=== PATIENT | male | born 1955 | race Two or more races ===

== ENCOUNTER 2017-03-09 12:02 | Inpatient (IN) | payer OTHER ==
[2017-03-09 14:22] VITALS: BMI 29.9
--- NOTE | 2017-03-09 15:30 | HP ---
CIWA Score - CIWA Score Nausea/Vomitin Muscle Tremors: None Anxiety: 4-Mod. Anxious/Guarded Agitation: 2 Paroxysmal Sweats: 3 Orientation: 0-Oriented Tacttile Disturbances: 0-None Auditory Disturbances: 3-Moderate Harsh/Frighten Visual Disturbances: 3-Moderate Sensitivity Headache: 0-None Present CIWA-Ar Total Score: 20 Admission ROS BHS - HPI Chief Complaint: "I am tired of this monotony and I'm I'm frustrated." Pt. is here to Detox from Alcohol. Allergies/Adverse Reactions: Allergies Allergy/AdvReac Type Severity Reaction Status Date / Time No Known Allergies Allergy Verified 03/09/17 13:59 History of Present Illness: Pt. is here to Detox from alcohol. This is pt.'s first detox admission to [facility]. Pt. had previous Detox admission at [facility], [place], [place] ( 1998). Period of sobriety: 1998 - 2013. Exam Limitations: No Limitations - Ebola screening Have you traveled outside of the country in the last 21 days: No Have you had contact with anyone from an Ebola affected area: No Have you been sick,other than usual withdrawal symptoms: No Do you have a fever: No - Review of Systems Constitutional: Chills, Diaphoresis, Fever, Malaise, Night Sweats, Changes in sleep, Unintentional Wgt. Loss (Lost approx. 35 lbs. over last 2 months.) EENT: reports: No Symptoms Reported Respiratory: reports: SOB at Rest (Occasional.) Cardiac: reports: Chest Pain (Occasional. PATIENT DENIES CURRENT CHEST PAIN.), Syncope (Last episode: approx. 1 month ago. Pt. was not evaluated at hospital.) GI: reports: Nausea, Vomiting, Indigestion (Acid Reflux.), Abdominal cramping : reports: No Symptoms Reported Musculoskeletal: reports: Back Pain Integumentary: reports: No Symptoms Reported Neuro: reports: Headache (Occasional.), Seizure (Pt. thinks that he had one in 2009. 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 5 years ago: NEGATIVE.) Hx Hepatitis C: No (Never Tested.) Hx Depression: Yes (On med.) Hx Suicide Attempt: Yes (jumped off the roof in 2000; PATIENT DENIES CURRENT SI / HI.) Hx Bipolar Disorder: Yes (No med.) Hx Schizophrenia: Yes (Prescribed meds. in past, never took.) Other Medical History: DENIES. - Patient Surgical History Past Surgical History: No Hx Neurologic Surgery: No Hx Cataract Extraction: No Hx Cardiac Surgery: No Hx Lung Surgery: No Hx Breast Surgery: No Hx Breast Biopsy: No Hx Abdominal Surgery: No Hx Appendectomy: No Hx Cholecystectomy: No Hx Genitourinary Surgery: No Hx Section: No Hx Orthopedic Surgery: No Anesthesia Reaction: No - PPD History Previous Implant?: Yes Documented Results: Negative w/o proof Implanted On Prior [facility] Admission?: No PPD to be Administered?: Yes - Reproductive History Patient is a Female of Child Bearing Age (11 -55 yrs old): No (PATIENT IS MALE.) - Smoking Cessation Smoking history: Current every day smoker Have you smoked in the past 12 months: Yes Aproximately how many cigarettes per day: 4 Cigars Per Day: 1 (Occasional.) Hx Chewing Tobacco Use: No Initiated information on smoking cessation: Yes 'Breaking Loose' booklet given: 03/09/17 (GIVEN ON UNIT.) - Substance & Tx. History Hx Alcohol Use: Yes Hx Substance Use: Yes Substance Use Type: Alcohol, Cocaine, Marijuana Hx Substance Use Treatment: Yes ([address] [facility], [place], [place] (1999).) - Substances Abused Cocaine Route: Smoking Frequency: Daily Amount used: $100-150 Age of first use: 36 Date of Last Use: 03/07/17 Alcohol-gin/beer Route: Oral Frequency: Daily Amount used: fifth/2 (24 oz.) Age of first use: 28 Date of Last Use: 03/07/17 Marijuana Route: Smoking Frequency: Daily Amount used: $50 Age of first use: 32 Date of Last Use: 03/08/17 Family Disease History - Family Disease History Family Disease History: Diabetes: Mother (HTN), Heart Disease: Grandparent (AR; HTN.), Mother Admission Physical Exam [facility] - Vital Signs Vital Signs: Vital Signs - 24 hr 03/09/17 14:01 Temperature 96 F L Pulse Rate 77 Respiratory 20 Rate Blood Pressure 166/103 - Physical General Appearance: Yes: Nourished, Appropriately Dressed, Mild Distress, Anxious HEENTM: Yes: Hearing grossly Normal, Normocephalic, Normal Voice, ROC, Pharynx Normal Respiratory: Yes: Chest Non-Tender, Lungs Clear, No Respiratory Distress, No Accessory Muscle Use Neck: Yes: No masses,lesions,Nodules, Supple, Trachea in good position Breast: Yes: Breast Exam Deferred Cardiology: Yes: Regular Rhythm, Regular Rate, S1, S2 Abdominal: Yes: Normal Bowel Sounds, Non Tender, Flat, Soft Genitourinary: Yes: Within Normal Limits Back: Yes: Decreased Range of Motion Musculoskeletal: Yes: Gait Steady, Back pain Extremities: Yes: Normal Range of Motion, Non-Tender Neurological: Yes: Fully Oriented, Alert, Normal Mood/Affect, Normal Response Integumentary: Yes: Normal Color, Dry, Warm Lymphatic: Yes: Within Normal Limits - Diagnostic (1) Alcohol dependence with uncomplicated withdrawal Current Visit: Yes Status: Acute (2) Cocaine dependence, uncomplicated Current Visit: Yes Status: Acute (3) Cannabis dependence, uncomplicated Current Visit: Yes Status: Acute (4) Nicotine dependence Current Visit: Yes Status: Chronic Qualifiers: Nicotine product type: cigarettes Substance use status: uncomplicated Qualified Code(s): F17.210 - Nicotine dependence, cigarettes, uncomplicated (5) Hypertension Current Visit: Yes Status: Chronic Qualifiers: Hypertension type: essential hypertension Qualified Code(s): I10 - Essential (primary) hypertension (6) History of heart failure Current Visit: Yes Status: Chronic (7) Neoplasm of heart Current Visit: Yes Status: Chronic (8) Hypercholesterolemia Current Visit: Yes Status: Chronic (9) History of depression Current Visit: Yes Status: Chronic (10) History of bipolar disorder Current Visit: Yes Status: Chronic (11) History of schizophrenia Current Visit: Yes Status: Chronic (12) Acid reflux Current Visit: Yes Status: Chronic Qualifiers: Esophagitis presence: esophagitis presence not specified Qualified Code(s): K21.9 - Gastro-esophageal reflux disease without esophagitis Cleared for Admission S - Detox or Rehab [facility] Level of Care: Medically Managed Detox Regimen/Protocol: Librium Urine Drug Screen - Results Drug Screen Negative: No Urine Drug Screen Results: THC-Marijuana, PERLITA-Cocaine
[2017-03-09] MEDS ORDERED: MAGNESIUM CITRATE 300 ML BOTTLE PO PRN (16:20)
[2017-03-09] MEDS ORDERED: ACETAMINOPHEN 325 MG TABLET (FP) PO PRN (16:20)
[2017-03-09] MEDS ORDERED: NICOTINE POLACRILEX 2 MG GUM BC PRN (16:20)
[2017-03-09] MEDS ORDERED: LOPERAMIDE HCL 2 MG CAPSULE PO PRN (16:20)
[2017-03-09] MEDS ORDERED: MAGNESIUM HYDROX 2400MG/30ML ORAL SUSPENSION 30 ML CUP PO PRN (16:20)
[2017-03-09] MEDS ORDERED: chlordiazePOXIDE HCL 25 MG CAPSULE PO PRN (16:20)
[2017-03-09] MEDS ORDERED: IBUPROFEN 400 MG TABLET (FP) PO PRN (16:20)
[2017-03-09] MEDS ORDERED: MAG HYDROX/AL HYDROX/SIMETH 30 ML UNIT-DOSE CUP PO PRN (16:20)
[2017-03-09] MEDS ORDERED: hydrOXYzine PAMOATE 50 MG CAPSULE (FP) PO PRN (16:20)
[2017-03-09] MEDS ORDERED: guaiFENesin/D-METHORPHAN HB 10 ML UNIT-DOSE CUPS PO PRN (16:20)
[2017-03-09] MEDS ORDERED: MENTHOL/PHENOL 1 EACH UD MM PRN (16:20)
[2017-03-09] MEDS ORDERED: P-EPHED 60MG/TRIPROLIDI 2.5MG TABLET PO PRN (16:20)
[2017-03-09] MEDS ORDERED: chlordiazePOXIDE HCL 25 MG CAPSULE PO ONE (16:45)
[2017-03-09] MEDS ORDERED: LISINOPRIL 20 MG TABLET (FP) PO SCH (17:00)
[2017-03-09] MEDS: NICOTINE 14 MG/24 HOURS TOPICAL PATCH TD SCH (18:33)
[2017-03-09] MEDS: hydrALAZINE HCL 50 MG TABLET (FP) PO SCH ×2 (18:33→22:37)
[2017-03-09] MEDS: ASPIRIN 81 MG CHEWABLE TABLETS PO SCH (18:33)
[2017-03-09] MEDS: chlordiazePOXIDE HCL 25 MG CAPSULE PO SCH ×2 (18:34→22:36)
[2017-03-09 21:20] LABS: URINE APPEARANCE CLEAR; URINE BILIRUBIN NEGATIVE (NEGATIVE); URINE BLOOD NEGATIVE (NEGATIVE); URINE COLOR YELLOW; URINE GLUCOSE (UA) NEGATIVE (NEGATIVE); URINE KETONE NEGATIVE (NEGATIVE); URINE LEUK ESTERASE NEGATIVE (NEGATIVE); URINE NITRITE NEGATIVE (NEGATIVE); URINE PROTEIN NEGATIVE (NEGATIVE); URINE UROBILINOGEN NEGATIVE mg/dL (0.2-1.0)
[2017-03-09] MEDS ORDERED: PRAZOSIN HCL 1 MG CAPSULE PO SCH (22:00)
[2017-03-09] MEDS: THIAMINE HCL 100 MG TABLET (FP) PO SCH (22:36)
[2017-03-09] MEDS: ATORVASTATIN CA 10 MG TABLET (FP) PO SCH (22:36)
[2017-03-10] MEDS: hydrALAZINE HCL 50 MG TABLET (FP) PO SCH ×3 (06:05→22:18)
[2017-03-10] MEDS: chlordiazePOXIDE HCL 25 MG CAPSULE PO SCH ×4 (06:05→22:18)
[2017-03-10] MEDS: VERAPAMIL HCL 180 MG E.R. TABLET (FP) PO SCH (06:05)
--- NOTE | 2017-03-10 09:15 | CONSULT ---
[facility] Psychiatric Consult - Data Date of interview: 03/10/17 Admission source: [facility] Identifying data: Mr Saxena is a 61 years old single Black male, Retired from the [employer], domiciled Substance Abuse History: Reports history of alcohol and cocaine abuse. He started drinking alcohol at age 28, consumes a fifth of gin & 2x 24oz of beer daily. Last drink on 03/07/17. He started smoking crack cocaine at age 36, consumes $100-150 worth daily. Last smoked on 03/07/17 Medical History: Significant for CAD/OR with 7 stents, hypertensin, hyperlipidemia, GERD, alcohol-related seizure, treatment for syphilis and S/P CVA. Smokes 4 cigarettes daily Psychiatric History: Reports being diagnosed with PTSD & Schizoaffective Disorder in 1999. Reports history of 6 previous psychiatic admissions to [facility]( [place] x2; [facility], [facility] x2 & [facility]). Reports 3 previous suicidal attempts by jumping off a roof. Reports receiving OPD care @ [facility] but cannot recall name of his psychotropic medications saying:"I have these names on my phone". According to [facility] data, he is on Lexapro 15 mg po daily and Prazosin 1 mg po HS. At present reports feeling depressed and sleeping poorly Physical/Sexual Abuse/Trauma History: Denies Additional Comment: Reports history of 6-7 previous arrests including 2 felony convictons on charges of robbery & attempted murder. No. Court case for 3 years Mental Status Exam - Mental Status Exam Alert and Oriented to: Time, Place, Person Cognitive Function: Fair Patient Appearance: Well Groomed Mood: Depressed Affect: Appropriate Patient Behavior: Cooperative Speech Pattern: Clear Voice Loudness: Normal Thought Process: Intact, Goal Oriented Hallucinations: Denies Suicidal Ideation: Denies Insight/Judgement: Poor Sleep: Poorly Appetite: Fair Muscle strength/Tone: Normal Gait/Station: Normal Psychiatric Findings - Problem List ([place] 1, 2,3) (1) PTSD (post-traumatic stress disorder) Current Visit: Yes Status: Acute (2) Schizoaffective disorder Current Visit: Yes Status: Acute (3) Alcohol dependence Current Visit: Yes Status: Acute (4) Cocaine dependence Current Visit: Yes Status: Acute (5) Nicotine dependence Current Visit: Yes Status: Chronic Qualifiers: Nicotine product type: cigarettes Substance use status: uncomplicated Qualified Code(s): F17.210 - Nicotine dependence, cigarettes, uncomplicated (6) Acid reflux Current Visit: Yes Status: Chronic Qualifiers: Esophagitis presence: esophagitis presence not specified Qualified Code(s): K21.9 - Gastro-esophageal reflux disease without esophagitis (7) History of heart failure Current Visit: Yes Status: Chronic (8) Hypercholesterolemia Current Visit: Yes Status: Chronic (9) Hypertension Current Visit: Yes Status: Chronic Qualifiers: Hypertension type: essential hypertension Qualified Code(s): I10 - Essential (primary) hypertension (10) Neoplasm of heart Current Visit: Yes Status: Chronic - Initial Treatment Plan Initial Treatment Plan: 1) Continue Lexapro 15 mg po daily and Prazosin 1 mg po HS. 2) Continue inpatient detoxification
[2017-03-10 09:52] LABS: MCH 29.4 pg (25.7-33.7); MCHC 32.6 g/dl (32.0-35.9); MEAN CELL VOLUME 90.2 fl (80-96); MEAN PLT VOLUME 9.8 fl (7.5-11.1); PLATELET COUNT 276 K/MM3 (134-434); RDW 15.9 % (11.9-15.9); WHITE BLOOD COUNT 6.5 K/mm3 (4.0-10.0)
[2017-03-10 10:15] LABS: ALBUMIN 3.6 g/dl (3.4-5.0); ALK PHOS 62 U/L (45-117); ANION GAP 4 (8-16); BILIRUBIN,TOTAL 0.5 mg/dL (0.2-1.0); CALCIUM 8.9 mg/dL (8.5-10.1); CO2 30 mmol/L (21-32); CREATININE 1.3 mg/dL (0.7-1.3); GLUCOSE,RANDOM 61 mg/dL (74-106); SGOT/AST 13 U/L (15-37); SGPT/ALT 14 U/L (12-78)
[2017-03-10] MEDS: PRENATAL VITAMINS W/ FOLIC ACID TABLET (FP) PO SCH (10:23)
[2017-03-10] MEDS: LISINOPRIL 20 MG TABLET (FP) PO SCH (10:23)
[2017-03-10] MEDS: NICOTINE 14 MG/24 HOURS TOPICAL PATCH TD SCH (10:23)
[2017-03-10] MEDS: ASPIRIN 81 MG CHEWABLE TABLETS PO SCH (10:23)
[2017-03-10] MEDS: ESCITALOPRAM OXALATE 10 MG TABLET (FP) PO SCH (10:24)
[2017-03-10 10:44] LABS: SICKLE CELL SCREEN POSITIVE (NEGATIVE)
--- NOTE | 2017-03-10 11:19 | PN ---
[facility] CIWA - CIWA Score Nausea/Vomitin-No Nausea/No Vomiting Muscle Tremors: 4-Moderate,w/Arms Extend Anxiety: 4-Mod. Anxious/Guarded Agitation: 3 Paroxysmal Sweats: 1-Minimal Palms Moist Orientation: 0-Oriented Tacttile Disturbances: 2-Mild Itch/Numbness/Burn Auditory Disturbances: 0-None Visual Disturbances: 0-None Headache: 0-None Present CIWA-Ar Total Score: 14 BHS Progress Note (SOAP) Subjective: ANXIETY,SWEATS,SLIGHT TREMORS,INTERMITTENT SLEEP. Objective: 03/10/17 11:19 Vital Signs Temperature 97.9 F 03/10/17 09:12 Pulse Rate 86 03/10/17 09:12 Respiratory Rate 18 03/10/17 09:12 Blood Pressure 128/71 03/10/17 09:12 O2 Sat by Pulse Oximetry (%) Laboratory Last Values WBC 6.5 K/mm3 (4.0-10.0) 03/10/17 06:00 RBC 5.04 M/mm3 (4.00-5.60) 03/10/17 06:00 Hgb 14.8 GM/dL (11.7-16.9) 03/10/17 06:00 Hct 45.5 % (35.4-49) 03/10/17 06:00 MCV 90.2 fl (80-96) 03/10/17 06:00 MCH 29.4 pg (25.7-33.7) 03/10/17 06:00 MCHC 32.6 g/dl (32.0-35.9) 03/10/17 06:00 RDW 15.9 % (11.9-15.9) 03/10/17 06:00 Plt Count 276 K/MM3 (134-434) 03/10/17 06:00 MPV 9.8 fl (7.5-11.1) 03/10/17 06:00 Sickle Cell Screen Positive (NEGATIVE) 03/10/17 06:00 Sodium 145 mmol/L (136-145) 03/10/17 06:00 Potassium 4.5 mmol/L (3.5-5.1) 03/10/17 06:00 Chloride 111 mmol/L (98-107) H 03/10/17 06:00 Carbon Dioxide 30 mmol/L (21-32) 03/10/17 06:00 Anion Gap 4 (8-16) L 03/10/17 06:00 BUN 18 mg/dL (7-18) 03/10/17 06:00 Creatinine 1.3 mg/dL (0.7-1.3) 03/10/17 06:00 Creat Clearance w eGFR 56.12 (>60) 03/10/17 06:00 Random Glucose 61 mg/dL (74-106) L 03/10/17 06:00 Calcium 8.9 mg/dL (8.5-10.1) 03/10/17 06:00 Total Bilirubin 0.5 mg/dL (0.2-1.0) 03/10/17 06:00 AST 13 U/L (15-37) L 03/10/17 06:00 ALT 14 U/L (12-78) 03/10/17 06:00 Alkaline Phosphatase 62 U/L (45-117) 03/10/17 06:00 Total Protein 7.0 g/dl (6.4-8.2) 03/10/17 06:00 Albumin 3.6 g/dl (3.4-5.0) 03/10/17 06:00 Urine Color Yellow 03/09/17 14:00 Urine Appearance Clear 03/09/17 14:00 Urine pH 5.0 (5.0-8.0) 03/09/17 14:00 Ur Specific [place] 1.025 (1.005-1.025) 03/09/17 14:00 Urine Protein Negative (NEGATIVE) 03/09/17 14:00 Urine Glucose (UA) Negative (NEGATIVE) 03/09/17 14:00 Urine Ketones Negative (NEGATIVE) 03/09/17 14:00 Urine Blood Negative (NEGATIVE) 03/09/17 14:00 Urine Nitrite Negative (NEGATIVE) 03/09/17 14:00 Urine Bilirubin Negative (NEGATIVE) 03/09/17 14:00 Urine Urobilinogen Negative mg/dL (0.2-1.0) 03/09/17 14:00 Assessment: 03/10/17 11:19 WITHDRAWAL SX Plan: CONTINUE DETOX
[2017-03-10 11:21] LABS: HIV 1 & 2 AB NEGATIVE; HIV 1 AGp24 NEGATIVE
[2017-03-10] MEDS ORDERED: FLU VACCINE QUAD 60 MCG/0.5 ML (MDV 17-18) IM ONE (12:00)
[2017-03-10] MEDS: THIAMINE HCL 100 MG TABLET (FP) PO SCH (22:18)
[2017-03-10] MEDS: ATORVASTATIN CA 10 MG TABLET (FP) PO SCH (22:18)
[2017-03-10] MEDS: PRAZOSIN HCL 1 MG CAPSULE PO SCH (22:19)
[2017-03-10] MEDS: diphenhydrAMINE HCL 50 MG CAPSULE PO PRN (22:20)
--- NOTE | 2017-03-10 22:46 | EKG ---
Test Reason : Blood Pressure : / mmHG Vent. Rate : 091 BPM Atrial Rate : 091 BPM P-R Int : 186 ms QRS Dur : 096 ms QT Int : 404 ms P-R-T Axes : 022 053 -21 degrees QTc Int : 496 ms SINUS RHYTHM PREMATURE VENTRICULAR COMPLEXES AT TIMES SUCCESSIVE INFEROLATERAL WALL [place] OF INDETERMINATE AGE ATRIALABNORMALITY ABNORMAL ECG NO PREVIOUS ECGS AVAILABLE NO CLINICAL INFORMATION IS AVAILABLE FOLLOW UP TRACING IS RECOMMENDED Confirmed by PABLO MOORE MD ([id number]) on 03/10/2017 10:46:07 PM Referred By: Confirmed By:PABLO MOORE MD
[2017-03-11] MEDS: VERAPAMIL HCL 180 MG E.R. TABLET (FP) PO SCH (06:14)
[2017-03-11] MEDS: chlordiazePOXIDE HCL 25 MG CAPSULE PO SCH ×2 (06:14→10:41)
[2017-03-11] MEDS: hydrALAZINE HCL 50 MG TABLET (FP) PO SCH ×3 (06:14→22:28)
[2017-03-11] MEDS: PRENATAL VITAMINS W/ FOLIC ACID TABLET (FP) PO SCH (10:41)
[2017-03-11] MEDS: ASPIRIN 81 MG CHEWABLE TABLETS PO SCH (10:41)
[2017-03-11] MEDS: ESCITALOPRAM OXALATE 10 MG TABLET (FP) PO SCH (10:42)
[2017-03-11] MEDS: LISINOPRIL 20 MG TABLET (FP) PO SCH (10:42)
[2017-03-11] MEDS: NICOTINE 14 MG/24 HOURS TOPICAL PATCH TD SCH (10:44)
--- NOTE | 2017-03-11 12:06 | PN ---
[facility] CIWA - CIWA Score Nausea/Vomitin-No Nausea/No Vomiting Muscle Tremors: 3 Anxiety: 4-Mod. Anxious/Guarded Agitation: 3 Paroxysmal Sweats: 1-Minimal Palms Moist Orientation: 0-Oriented Tacttile Disturbances: 3-Moderate Itch/Numb/Burn Auditory Disturbances: 0-None Visual Disturbances: 0-None Headache: 0-None Present CIWA-Ar Total Score: 14 BHS Progress Note (SOAP) Subjective: ANXIETY,SLIGHT TREMORS, SWEATS, INTERMITTENT SLEEP Objective: 03/11/17 11:57 Vital Signs Temperature 96.9 F L 03/11/17 09:36 Pulse Rate 83 03/11/17 09:36 Respiratory Rate 20 03/11/17 09:36 Blood Pressure 122/79 03/11/17 09:36 O2 Sat by Pulse Oximetry (%) Laboratory Last Values WBC 6.5 K/mm3 (4.0-10.0) 03/10/17 06:00 RBC 5.04 M/mm3 (4.00-5.60) 03/10/17 06:00 Hgb 14.8 GM/dL (11.7-16.9) 03/10/17 06:00 Hct 45.5 % (35.4-49) 03/10/17 06:00 MCV 90.2 fl (80-96) 03/10/17 06:00 MCH 29.4 pg (25.7-33.7) 03/10/17 06:00 MCHC 32.6 g/dl (32.0-35.9) 03/10/17 06:00 RDW 15.9 % (11.9-15.9) 03/10/17 06:00 Plt Count 276 K/MM3 (134-434) 03/10/17 06:00 MPV 9.8 fl (7.5-11.1) 03/10/17 06:00 Sickle Cell Screen Positive (NEGATIVE) 03/10/17 06:00 Sodium 145 mmol/L (136-145) 03/10/17 06:00 Potassium 4.5 mmol/L (3.5-5.1) 03/10/17 06:00 Chloride 111 mmol/L (98-107) H 03/10/17 06:00 Carbon Dioxide 30 mmol/L (21-32) 03/10/17 06:00 Anion Gap 4 (8-16) L 03/10/17 06:00 BUN 18 mg/dL (7-18) 03/10/17 06:00 Creatinine 1.3 mg/dL (0.7-1.3) 03/10/17 06:00 Creat Clearance w eGFR 56.12 (>60) 03/10/17 06:00 Random Glucose 61 mg/dL (74-106) L 03/10/17 06:00 Calcium 8.9 mg/dL (8.5-10.1) 03/10/17 06:00 Total Bilirubin 0.5 mg/dL (0.2-1.0) 03/10/17 06:00 AST 13 U/L (15-37) L 03/10/17 06:00 ALT 14 U/L (12-78) 03/10/17 06:00 Alkaline Phosphatase 62 U/L (45-117) 03/10/17 06:00 Total Protein 7.0 g/dl (6.4-8.2) 03/10/17 06:00 Albumin 3.6 g/dl (3.4-5.0) 03/10/17 06:00 Urine Color Yellow 03/09/17 14:00 Urine Appearance Clear 03/09/17 14:00 Urine pH 5.0 (5.0-8.0) 03/09/17 14:00 Ur Specific [place] 1.025 (1.005-1.025) 03/09/17 14:00 Urine Protein Negative (NEGATIVE) 03/09/17 14:00 Urine Glucose (UA) Negative (NEGATIVE) 03/09/17 14:00 Urine Ketones Negative (NEGATIVE) 03/09/17 14:00 Urine Blood Negative (NEGATIVE) 03/09/17 14:00 Urine Nitrite Negative (NEGATIVE) 03/09/17 14:00 Urine Bilirubin Negative (NEGATIVE) 03/09/17 14:00 Urine Urobilinogen Negative mg/dL (0.2-1.0) 03/09/17 14:00 RPR Titer Nonreactive (NONREACTIVE) 03/10/17 06:00 Hepatitis C Antibody <0.1 s/co ratio (0.0-0.9) 03/09/17 06:00 HIV 1&2 Antibody Screen Negative 03/09/17 06:00 HIV P24 Antigen Negative 03/09/17 06:00 EKG; SINUS RHYTHM PREMATURE VENTRICULAR COMPLEXES AT TIMES SUCCESSIVE INFEROLATERAL WALL OK OF INDETERMINATE AGE ATRIAL ABNORMALITY ABNORMAL EKG NO PREVIOUS EKG WILL REPEAT EKG PT ON INTERVIEW DISCLOSED HX PREVIOUS OK X 2 IN 1990 AND 1997 OR 1998. HX HTN,NEOPLASM OF HEART,GERD ALERT O X 3. NAD. DENIES CHEST PAIN, SOB, DIZZINESS OR ANY DISCOMFORT AT THIS TIME OR SINCE HE HAS BEEN ADMITTED HERE. ON ASPIRIN, VERAPAMIL,HYDRALAZINE, LIPITOR,PRAZOSIN AND LISINOPRIL. PT STATES MEDICAL CARE MANAGED BY HIS [facility] DOCTOR. Assessment: 03/11/17 12:11 WITHDRAWAL SX Plan: CONTINUE DETOX
--- NOTE | 2017-03-11 12:14 | EKG ---
Test Reason : Blood Pressure : / mmHG Vent. Rate : 077 BPM Atrial Rate : 077 BPM P-R Int : 192 ms QRS Dur : 098 ms QT Int : 436 ms P-R-T Axes : 009 044 006 degrees QTc Int : 493 ms SINUS RHYTHM WITH OCCASIONAL PREMATURE VENTRICULAR COMPLEXES AND PREMATURE ATRIAL COMPLEXES POSSIBLE LEFT ATRIAL ENLARGEMENT INFERIOR INFARCT (CITED ON OR BEFORE 11-MAR-2017) ANTEROLATERAL INFARCT (CITED ON OR BEFORE 11-MAR-2017) ABNORMAL ECG WHEN COMPARED WITH ECG OF 09-MAR-2017 18:42, PREMATURE ATRIAL COMPLEXES ARE NOW PRESENT Confirmed by GONZÁLEZ SAAVEDRA MD ([id number]) on 03/11/2017 12:13:56 PM Referred By: Confirmed By:GONZÁLEZ SAAVEDRA MD
[2017-03-11] MEDS: chlordiazePOXIDE 5 MG CAPSULE PO SCH ×2 (17:21→22:27)
[2017-03-11] MEDS: THIAMINE HCL 100 MG TABLET (FP) PO SCH (22:27)
[2017-03-11] MEDS: ATORVASTATIN CA 10 MG TABLET (FP) PO SCH (22:28)
[2017-03-11] MEDS: PRAZOSIN HCL 1 MG CAPSULE PO SCH (22:28)
[2017-03-11] MEDS: diphenhydrAMINE HCL 50 MG CAPSULE PO PRN (22:59)
[2017-03-12] MEDS: chlordiazePOXIDE 5 MG CAPSULE PO SCH ×2 (06:03→09:59)
[2017-03-12] MEDS: VERAPAMIL HCL 180 MG E.R. TABLET (FP) PO SCH (06:03)
[2017-03-12] MEDS: hydrALAZINE HCL 50 MG TABLET (FP) PO SCH ×2 (06:03→15:12)
[2017-03-12 09:46] VITALS: BP 142/90; PULSE 77; TEMP 97.7
[2017-03-12] MEDS: PRENATAL VITAMINS W/ FOLIC ACID TABLET (FP) PO SCH (09:59)
[2017-03-12] MEDS: LISINOPRIL 20 MG TABLET (FP) PO SCH (09:59)
[2017-03-12] MEDS: ESCITALOPRAM OXALATE 10 MG TABLET (FP) PO SCH (10:00)
[2017-03-12] MEDS: ASPIRIN 81 MG CHEWABLE TABLETS PO SCH (10:01)
[2017-03-12] MEDS: NICOTINE 14 MG/24 HOURS TOPICAL PATCH TD SCH (11:19)
--- NOTE | 2017-03-12 11:51 | PN ---
[facility] Progress Note Note: SAW PT WHO WAS ADMITTED HERE FOR DETOX SINCE 03/09/17 WITH C/O HEADACHE,CHEST PAIN TO LEFT SIDE ON AND OFF LASTING ABOUT 5 MINS,DIZZINESS,SOB. PT REPORTS PREVIOUS HX OF MS X 2, HTN, HYPERCHOLESTEROLEMIA. CARDIAC; SI S2, RRR BP 151/94 P74 RR22 T 98.2 LUNGS:CLEAR PULSE OX; 99% ROOM AIR EKG: CHANGES FROM PREVIOUS DAYS. CURRENTLY WITH: SINUS RHYTHM WITH 1st DEGREE AV BLOCK WITH PREMATURE VENTRICULAR COMPLEXES POSSIBLE LEFT ATRIAL ENLARGED INFERIOR INFARCT, AGE UNDETERMINED ANTEROLATERAL INFARCT,AGE UNDETERMINED ABNORMAL EKG IMPRESSION:CHEST PAIN PLAN: TRANSFER TO [facility] FOR EVALUATION AND STABILIZATION/CARDIAC CLEARANCE. SPOKE WITH DR WOO AT THE [facility] ER.
--- NOTE | 2017-03-12 15:58 | EKG ---
Test Reason : Blood Pressure : / mmHG Vent. Rate : 071 BPM Atrial Rate : 071 BPM P-R Int : 246 ms QRS Dur : 098 ms QT Int : 444 ms P-R-T Axes : 009 037 -03 degrees QTc Int : 482 ms SINUS RHYTHM WITH 1ST DEGREE A-V BLOCK WITH FREQUENT PREMATURE VENTRICULAR COMPLEXES POSSIBLE LEFT ATRIAL ENLARGEMENT INFERIOR INFARCT (CITED ON OR BEFORE 11-MAR-2017) ANTEROLATERAL INFARCT (CITED ON OR BEFORE 11-MAR-2017) ABNORMAL ECG WHEN COMPARED WITH ECG OF 11-MAR-2017 09:48, PREMATURE ATRIAL COMPLEXES ARE NO LONGER PRESENT MD INTERVAL HAS INCREASED Confirmed by URSULA YANG MD ([id number]) on 03/12/2017 3:58:20 PM Referred By: Confirmed By:URSULA YANG MD
[2017-03-12 16:31] LABS: Hgb A2 4.2 % (0.7-3.1)
[2017-03-12] MEDS ORDERED: chlordiazePOXIDE HCL 10 MG CAPSULE PO SCH (17:00)
--- NOTE | 2017-03-16 15:02 | DS ---
[facility] Detox Discharge Summary Admission Date: 03/09/17 Discharge Date: 03/12/17 - History Present History: Alcohol Dependence Additional Comments: PT WAS TRANSFERED TO [facility] DUE TO CHEST PAIN/ EKG CHANGES,DIZZINESS, SOB AND HEADACHE. PT WAS DOWN ON HIS LIBRIUM 10 MG PART KHALIF BEFORE TRANSFER AND SAME INFORMATION RELAYED TO ACCEPTING MD. Pertinent Past History: CAD HTN S/P AR X 2 GERD NEOPLASM OF HEART HYPERCHOLESTEROLEMIA - Physical Exam Results Vital Signs: Vital Signs Temperature 97.7 F 03/12/17 09:46 Pulse Rate 77 03/12/17 09:46 Respiratory Rate 18 03/12/17 09:46 Blood Pressure 142/90 03/12/17 09:46 O2 Sat by Pulse Oximetry (%) Pertinent Admission Physical Exam Findings: WITHDRAWAL SX Laboratory Last Values WBC 6.5 K/mm3 (4.0-10.0) 03/10/17 06:00 RBC 5.04 M/mm3 (4.00-5.60) 03/10/17 06:00 Hgb 14.8 GM/dL (11.7-16.9) 03/10/17 06:00 Hct 45.5 % (35.4-49) 03/10/17 06:00 MCV 90.2 fl (80-96) 03/10/17 06:00 MCH 29.4 pg (25.7-33.7) 03/10/17 06:00 MCHC 32.6 g/dl (32.0-35.9) 03/10/17 06:00 RDW 15.9 % (11.9-15.9) 03/10/17 06:00 Plt Count 276 K/MM3 (134-434) 03/10/17 06:00 MPV 9.8 fl (7.5-11.1) 03/10/17 06:00 Sickle Cell Screen Positive (NEGATIVE) 03/10/17 06:00 Hemoglobin A 56.2 % (94.0-98.0) L 03/10/17 06:00 Hemoglobin A2 4.2 % (0.7-3.1) H 03/10/17 06:00 Hemoglobin C 0 % (0.0) 03/10/17 06:00 Hemoglobin S 39.6 % (0.0) H 03/10/17 06:00 Variant Hemoglobin TNP 03/10/17 06:00 Hemoglobin Interpret (.) 03/10/17 06:00 Maternal Rh 0 % (0.0-2.0) 03/10/17 06:00 Hemoglobin Solubility Positive (Negative) H 03/10/17 06:00 Sodium 145 mmol/L (136-145) 03/10/17 06:00 Potassium 4.5 mmol/L (3.5-5.1) 03/10/17 06:00 Chloride 111 mmol/L (98-107) H 03/10/17 06:00 Carbon Dioxide 30 mmol/L (21-32) 03/10/17 06:00 Anion Gap 4 (8-16) L 03/10/17 06:00 BUN 18 mg/dL (7-18) 03/10/17 06:00 Creatinine 1.3 mg/dL (0.7-1.3) 03/10/17 06:00 Creat Clearance w eGFR 56.12 (>60) 03/10/17 06:00 Random Glucose 61 mg/dL (74-106) L 03/10/17 06:00 Calcium 8.9 mg/dL (8.5-10.1) 03/10/17 06:00 Total Bilirubin 0.5 mg/dL (0.2-1.0) 03/10/17 06:00 AST 13 U/L (15-37) L 03/10/17 06:00 ALT 14 U/L (12-78) 03/10/17 06:00 Alkaline Phosphatase 62 U/L (45-117) 03/10/17 06:00 Total Protein 7.0 g/dl (6.4-8.2) 03/10/17 06:00 Albumin 3.6 g/dl (3.4-5.0) 03/10/17 06:00 Urine Color Yellow 03/09/17 14:00 Urine Appearance Clear 03/09/17 14:00 Urine pH 5.0 (5.0-8.0) 03/09/17 14:00 Ur Specific [place] 1.025 (1.005-1.025) 03/09/17 14:00 Urine Protein Negative (NEGATIVE) 03/09/17 14:00 Urine Glucose (UA) Negative (NEGATIVE) 03/09/17 14:00 Urine Ketones Negative (NEGATIVE) 03/09/17 14:00 Urine Blood Negative (NEGATIVE) 03/09/17 14:00 Urine Nitrite Negative (NEGATIVE) 03/09/17 14:00 Urine Bilirubin Negative (NEGATIVE) 03/09/17 14:00 Urine Urobilinogen Negative mg/dL (0.2-1.0) 03/09/17 14:00 RPR Titer Nonreactive (NONREACTIVE) 03/10/17 06:00 Hepatitis C Antibody <0.1 s/co ratio (0.0-0.9) 03/09/17 06:00 HIV 1&2 Antibody Screen Negative 03/09/17 06:00 HIV P24 Antigen Negative 03/09/17 06:00 - Treatment Hospital Course: Detox Protocol Followed, Detoxed Safely, Discharged Condition Good - Medication Discharge Medications: Ambulatory Orders Aspirin [ASA -] 81 mg PO DAILY 03/09/17 Hydralazine HCl [Apresoline -] 50 mg PO Q8H 03/09/17 Lisinopril [Zestril] 40 mg PO DAILY 03/09/17 Multivitamins [Multivit ([facility] Formulary)] 1 tab PO DAILY 03/09/17 Pravastatin Sodium [Pravachol -] 40 mg PO HS 03/09/17 Prazosin HCl [Minipress -] 1 mg PO HS 03/09/17 Verapamil HCl [Calan Sr] 180 mg PO AM 03/09/17 Prazosin HCl 1 mg PO HS #30 capsule 03/10/17 Escitalopram Oxalate [Lexapro -] 5 mg PO TID 03/12/17 - Diagnosis (1) Alcohol dependence with uncomplicated withdrawal Status: Acute (2) Acid reflux Status: Chronic Qualifiers: Esophagitis presence: esophagitis presence not specified Qualified Code(s): K21.9 - Gastro-esophageal reflux disease without esophagitis; K21.9 - Gastro-esophageal reflux disease without esophagitis; K21.9 - Gastro-esophageal reflux disease without esophagitis (3) History of heart failure Status: Chronic (4) Hypercholesterolemia Status: Chronic (5) Hypertension Status: Chronic Qualifiers: Hypertension type: essential hypertension Qualified Code(s): I10 - Essential (primary) hypertension; I10 - Essential (primary) hypertension; I10 - Essential (primary) hypertension (6) Neoplasm of heart Status: Chronic (7) Nicotine dependence Status: Acute Qualifiers: Nicotine product type: cigarettes Substance use status: in withdrawal Qualified Code(s): F17.213 - Nicotine dependence, cigarettes, with withdrawal; F17.213 - Nicotine dependence, cigarettes, with withdrawal - AMA Did Patient Leave Against Medical Advice: No (TRANSFERED TO [facility])
== END 2017-03-12 21:19 | disposition short-term general hospital (02) | DRG 774 ==
LOC: YASAS 12:02 → Y3N 15:31
PROVIDERS: ADMIT Internal Medicine; ATTEND Internal Medicine
PROC: HZ2ZZZZ Detoxification Services for Substance Abuse Treatment (ICD-10-PCS; principal; 2017-03-09)
PROC: HZ2ZZZZ Detoxification Services for Substance Abuse Treatment (ICD-10-PCS; 2017-03-09)
DX: F10.230 Alcohol dependence with withdrawal, uncomplicated (principal); F14.20 Cocaine dependence, uncomplicated; F17.210 Nicotine dependence, cigarettes, uncomplicated; F43.10 Post-traumatic stress disorder, unspecified; I25.10 Atherosclerotic heart disease of native coronary artery without angina pectoris; I11.0 Hypertensive heart disease with heart failure; I50.9 Heart failure, unspecified; Z95.5 Presence of coronary angioplasty implant and graft; G40.509 Epileptic seizures related to external causes, not intractable, without status epilepticus; Z86.73 Personal history of transient ischemic attack (TIA), and cerebral infarction without residual deficits; D48.7 Neoplasm of uncertain behavior of other specified sites
CPT/HCPCS: 36415; 80053; 81003; 83021; 85027; 85660; 86593; 86803; 87389; 90688; 93005; 93010; G0008

== ENCOUNTER 2017-03-12 12:07 | Observation (INO) | payer OTHER ==
--- NOTE | 2017-03-12 12:14 | PDOC ---
History of Present Illness <Melina Huerta - Last Filed: 03/12/17 15:18> - General History Source: Patient Exam Limitations: No Limitations - History of Present Illness Initial Comments: 03/12/17 15:22 Patient is a 61 year old male with pmhx of EtOH abuse, neoplasm around the heart , hx of FL X 2 (7 stents placed in 2002), CHF, PTSD, schizoaffective disorder, depression, bipolar disorder, uncontrolled hld, htn who presents to the ED with chest pain that started this morning sent from [facility]. Patient is currently undergoing detox from alcohol since 03/09. Patient states that he developed chest pain today in detox. Pain nonpleuritic, nonradiating, and constant. He reports associated sweats.. He notes that he was last evaluated by a test specialist at [facility]. He notes that his last cocaine use was 4-5 days ago, about $100 dollars worth. Patients period of sobriety was [id number]. He denies any fever, SOB, visual changes, nausea, vomiting, diarrhea, numbness or weakness, LOC, LE edema. SH - EtOH use, cocaine use, cannabis use and cigarette use. 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; 1990.) CVA: Yes (1998.) COPD: No CHF: Yes (Diagnosed early 2016.) Dementia: No Diabetes: No GI Disorders: Yes (acid reflux) Disorders: No HTN: Yes (On meds.) Hypercholesterolemia: Yes (On med.) Kidney Stones: No Liver Disease: No Seizures: Yes (alcohol related-last episode was in 2009) Thyroid Disease: No - Surgical History Abdominal Surgery: No Appendectomy: No Cardiac Surgery: No Cholecystectomy: No Lung Surgery: No Neurologic Surgery: No Orthopedic Surgery: No - Reproductive History Testicular Surgery: No - Suicide/Smoking/Psychosocial Hx Smoking History: Current every day smoker Have you smoked in the past 12 months: Yes Number of Cigarettes Smoked Daily: 4 Cigars Per Day: 1 (Occasional.) 'Breaking Loose' booklet given: 03/09/17 (GIVEN ON UNIT.) Hx Alcohol Use: Yes Drug/Substance Use Hx: Yes Substance Use Type: Alcohol, Cocaine, Marijuana Hx Substance Use Treatment: Yes (1 Previous Detox admission [facility], [place], [place] (1998).) <Melina Huerta - Last Filed: 03/12/17 15:18> <IsmaelsyCora - Last Filed: 03/12/17 16:26> - Past Medical History Allergies/Adverse Reactions: Allergies Allergy/AdvReac Type Severity Reaction Status Date / Time No Known Allergies Allergy Verified 03/12/17 12:23 Home Medications: Ambulatory Orders Aspirin [ASA -] 81 mg PO DAILY 03/09/17 Hydralazine HCl [Apresoline -] 50 mg PO Q8H 03/09/17 Lisinopril [Zestril] 40 mg PO DAILY 03/09/17 Multivitamins [Tab-A-Vit -] 1 tab PO DAILY 03/09/17 Pravastatin Sodium [Pravachol (Nf)] 40 mg PO HS 03/09/17 Prazosin HCl [Minipress -] 1 mg PO HS 03/09/17 Verapamil HCl [Calan Sr] 180 mg PO AM 03/09/17 Prazosin HCl 1 mg PO HS #30 capsule 03/10/17 Escitalopram Oxalate [Lexapro -] 5 mg PO TID 03/12/17 Review of Systems - Review of Systems Able to Perform ROS?: Yes Comments:: 03/12/17 15:23 GENERAL/CONSTITUTIONAL: +diaphoresis. No fever or chills. No weakness. HEAD, EYES, EARS, NOSE AND THROAT: No change in vision. No ear pain or discharge. No sore throat. GASTROINTESTINAL: No nausea, vomiting, diarrhea or constipation. GENITOURINARY: No dysuria, frequency, or change in urination. CARDIOVASCULAR: +chest pain. No shortness of breath. RESPIRATORY: No cough, wheezing, or hemoptysis. MUSCULOSKELETAL: No edema. No joint or muscle pain. No neck or back pain. SKIN: No rash NEUROLOGIC: No headache, vertigo, loss of consciousness, or change in strength/ sensation. ENDOCRINE: No increased thirst. No abnormal weight change. HEMATOLOGIC/LYMPHATIC: No anemia, easy bleeding, or history of blood clots. ALLERGIC/IMMUNOLOGIC: No hives or skin allergy. <Cora Hunter - Last Filed: 03/12/17 16:26> *Physical Exam - Vital Signs Last Vital Signs Temp Pulse Resp BP Pulse Ox 97.8 F 70 18 163/107 100 03/12/17 12:15 03/12/17 12:15 03/12/17 12:15 03/12/17 12:15 03/12/17 12:15 - Physical Exam Comments: 03/12/17 15:23 GENERAL: Awake, alert, and fully oriented, in no acute distress HEAD: No signs of trauma EYES: PERRLA, EOMI, sclera anicteric, conjunctiva clear ENT: Auricles normal inspection, hearing grossly normal, nares patent, oropharynx clear without exudates. Moist mucosa NECK: Normal ROM, supple, no lymphadenopathy, JVD, or masses LUNGS: Breath sounds equal, clear to auscultation bilaterally. No wheezes, and no crackles HEART: Regular rate and rhythm, normal S1 and S2, no murmurs, rubs or gallops ABDOMEN: Soft, nontender, normoactive bowel sounds. No guarding, no rebound. No masses EXTREMITIES: Normal range of motion, no edema. No clubbing or cyanosis. No cords , erythema, or tenderness. No LE edema. BACK: No midline spinal tenderness in cervical/thoracic/lumbar region NEUROLOGICAL: Normal speech, cranial nerves intact, negative pronator drift, 5/ 5 strength in all 4 extremities, normal sensation to light touch in all 4 extremities, normal cerebellar exam, normal gait, normal reflexes and tone SKIN: Warm, Dry, normal turgor, no rashes or lesions noted. <Cora Hunter - Last Filed: 03/12/17 16:26> Heart Score/ECG Review #1 03/12/17 15:22 Sinus rhythm rate 67 Frequent pvcs Normal axis No ST elevations Compared to ECG from 03/11/17 more PVCs noted <Cora Hunter - Last Filed: 03/12/17 16:26> ED Treatment Course - LABORATORY CBC & Chemistry Diagram: 03/12/17 13:10 03/12/17 13:10 <Melina Huerta - Last Filed: 03/12/17 15:18> - LABORATORY CBC & Chemistry Diagram: 03/12/17 13:10 03/12/17 13:10 - ADDITIONAL ORDERS Additional order review: Laboratory Results 03/12/17 03/12/17 03/12/17 14:25 14:20 13:10 Sodium 142 Potassium 4.7 Chloride 107 Carbon Dioxide 28 Anion Gap 7 L BUN 13 D Creatinine 1.0 D Creat Clearance w eGFR > 60 Random Glucose 78 D Calcium 9.2 Magnesium 2.4 Total Bilirubin 0.9 D AST 18 D ALT 16 Alkaline Phosphatase 65 Troponin I 0.05 B-Natriuretic Peptide 887.16 H Total Protein 7.4 Albumin 3.7 Lipase 133 Opiates Screen Negative Methadone Screen Negative Barbiturate Screen Negative Phencyclidine Screen Negative Ur Amphetamines Screen Negative MDMA (Ecstasy) Screen Negative Benzodiazepines Screen Positive Cocaine Screen Negative U Marijuana (THC) Screen Positive 03/12/17 13:10 RBC 5.29 MCV 88.7 MCHC 32.7 RDW 15.7 MPV 8.6 D Neutrophils % 50.3 Lymphocytes % 32.8 Monocytes % 12.2 H Eosinophils % 3.3 Basophils % 1.4 <Cora Hunter - Last Filed: 03/12/17 16:26> Medical Decision Making - Medical Decision Making 03/12/17 14:13 61-year-old male history of polysubstance abuse including cocaine use, FL status post stent presents with chest pain since this morning. Last cocaine use 4 days ago. Vitals remarkable for hypertension. Exam unremarkable. High concern for ACS versus coronary vasospasm versus unstable angina. -labs -panel monitor -CXR -admit to tele obs 03/12/17 15:16 Labs unremarkable. Chest x-rays pending. Case discussed in detail with admitting physician (Dr. Mcgovern/Pattie) including history, physical exam and ancillary studies. Admitting physician has assumed care for the patient, will follow all pending diagnostics and will complete the evaluation and treatment. <Melina Huerta - Last Filed: 03/12/17 15:18> *DC/Admit/Observation/Transfer - Discharge Dispostion Admit: Yes - Attestations Physician Attestion: 03/12/17 15:19 I, Dr. Melina Huerta MD, attest that this document has been prepared under my direction and personally reviewed by me in its entirety. I further attest, that it accurately reflects all work, treatment, procedures and medical decision -making performed by de. <Melina Huerta - Last Filed: 03/12/17 15:18> <Cora Hunter - Last Filed: 03/12/17 16:26> Diagnosis at time of Disposition: Chest pain Qualifiers: Chest pain type: unspecified Qualified Code(s): R07.9 - Chest pain, unspecified - Discharge Dispostion Condition at time of disposition: Stable
[2017-03-12 12:23] VITALS: BMI 30.1
[2017-03-12 13:18] LABS: BASOPHIL 1.4 % (0-2.0); EOSINOPHIL 3.3 % (0-4.5); MCHC 32.7 g/dl (32.0-35.9); MEAN CELL VOLUME 88.7 fl (80-96); MEAN PLT VOLUME 8.6 fl (7.5-11.1); NEUTROPHILS 50.3 % (42.8-82.8); PLATELET COUNT 255 K/MM3 (134-434); RDW 15.7 % (11.9-15.9); WHITE BLOOD COUNT 6.3 K/mm3 (4.0-10.0)
[2017-03-12 13:42] LABS: ALBUMIN 3.7 g/dl (3.4-5.0); ANION GAP 7 (8-16); CALCIUM 9.2 mg/dL (8.5-10.1); CO2 28 mmol/L (21-32); GLUCOSE,RANDOM 78 mg/dL (74-106); SGPT/ALT 16 U/L (12-78)
[2017-03-12 13:47] LABS: ALK PHOS 65 U/L (45-117); BILIRUBIN,TOTAL 0.9 mg/dL (0.2-1.0); TOT PROT 7.4 g/dl (6.4-8.2); TROPONIN I 0.05 ng/ml (0.00-0.05)
[2017-03-12 13:54] LABS: MAGNESIUM 2.4 mg/dL (1.8-2.4)
[2017-03-12 13:55] LABS: SGOT/AST 18 U/L (15-37)
--- NOTE | 2017-03-12 14:37 | EKG ---
Test Reason : Blood Pressure : / mmHG Vent. Rate : 067 BPM Atrial Rate : 067 BPM P-R Int : 224 ms QRS Dur : 098 ms QT Int : 484 ms P-R-T Axes : -14 -15 046 degrees QTc Int : 511 ms SINUS RHYTHM WITH 1ST DEGREE A-V BLOCK WITH FREQUENT PREMATURE VENTRICULAR COMPLEXES LATERAL INFARCT (CITED ON OR BEFORE 11-MAR-2017) INFERIOR INFARCT (CITED ON OR BEFORE 11-MAR-2017) PROLONGED QT ABNORMAL ECG WHEN COMPARED WITH ECG OF 12-MAR-2017 11:01, QUESTIONABLE CHANGE IN INITIAL FORCES OF ANTERIOR LEADS QUESTIONABLE CHANGE IN INITIAL FORCES OF INFERIOR LEADS Confirmed by URSULA YANG MD ([id number]) on 03/12/2017 2:36:37 PM Referred By: Confirmed By:URSULA YANG MD
[2017-03-12 14:48] LABS: URINE MARIJUANA THC POSITIVE ng/ml (CUTOFF=50)
--- NOTE | 2017-03-12 15:39 | HP ---
CHIEF COMPLAINT: PCP: HISTORY OF PRESENT ILLNESS: ER course was notable for: (1) (2) (3) Recent Travel: PAST MEDICAL HISTORY: PAST SURGICAL HISTORY: Social History: Smoking: Alcohol: Drugs: Family History: Allergies No Known Allergies Allergy (Verified 03/12/17 12:23) HOME MEDICATIONS: Home Medications Medication Instructions Recorded Aspirin [ASA -] 81 mg PO DAILY 03/09/17 Hydralazine HCl [Apresoline -] 50 mg PO Q8H 03/09/17 Lisinopril [Zestril] 40 mg PO DAILY 03/09/17 Multivitamins [Tab-A-Vit -] 1 tab PO DAILY 03/09/17 Pravastatin Sodium [Pravachol (Nf)] 40 mg PO HS 03/09/17 Prazosin HCl [Minipress -] 1 mg PO HS 03/09/17 Verapamil HCl [Calan Sr] 180 mg PO AM 03/09/17 Prazosin HCl 1 mg PO HS #30 capsule 03/10/17 Escitalopram Oxalate [Lexapro -] 5 mg PO TID 03/12/17 REVIEW OF SYSTEMS CONSTITUTIONAL: Absent: fever, chills, diaphoresis, generalized weakness, malaise, loss of appetite, weight change HEENT: Absent: rhinorrhea, nasal congestion, throat pain, throat swelling, difficulty swallowing, mouth swelling, ear pain, eye pain, visual changes CARDIOVASCULAR: Absent: chest pain, syncope, palpitations, irregular heart rate, lightheadedness , peripheral edema RESPIRATORY: Absent: cough, shortness of breath, dyspnea with exertion, orthopnea, wheezing, stridor, hemoptysis GASTROINTESTINAL: Absent: abdominal pain, abdominal distension, nausea, vomiting, diarrhea, constipation, melena, hematochezia GENITOURINARY: Absent: dysuria, frequency, urgency, hesitancy, hematuria, flank pain, genital pain MUSCULOSKELETAL: Absent: myalgia, arthralgia, joint swelling, back pain, neck pain SKIN: Absent: rash, itching, pallor HEMATOLOGIC/IMMUNOLOGIC: Absent: easy bleeding, easy bruising, lymphadenopathy, frequent infections ENDOCRINE: Absent: unexplained weight gain, unexplained weight loss, heat intolerance, cold intolerance NEUROLOGIC: Absent: headache, focal weakness or paresthesias, dizziness, unsteady gait, seizure, mental status changes, bladder or bowel incontinence PSYCHIATRIC: Absent: anxiety, depression, suicidal or homicidal ideation, hallucinations. PHYSICAL EXAMINATION Vital Signs - 24 hr 03/12/17 12:15 Temperature 97.8 F Pulse Rate 70 Respiratory 18 Rate Blood Pressure 163/107 O2 Sat by Pulse 100 Oximetry (%) GENERAL: Awake, alert, and fully oriented, in no acute distress. HEAD: Normal with no signs of trauma. EYES: Pupils equal, round and reactive to light, extraocular movements intact, sclera anicteric, conjunctiva clear. No lid lag. EARS, NOSE, THROAT: Ears normal, nares patent, oropharynx clear without exudates. Moist mucous membranes. NECK: Normal range of motion, supple without lymphadenopathy, JVD, or masses. LUNGS: Breath sounds equal, clear to auscultation bilaterally. No wheezes, and no crackles. No accessory muscle use. HEART: Regular rate and rhythm, normal S1 and S2 without murmur, rub or gallop. ABDOMEN: Soft, nontender, not distended, normoactive bowel sounds, no guarding, no rebound, no masses. No hepatomegaly or splenomegaly. MUSCULOSKELETAL: Normal range of motion at all joints. No bony deformities or tenderness. No CVA tenderness. UPPER EXTREMITIES: 2+ pulses, warm, well-perfused. No cyanosis. No clubbing. No peripheral edema. LOWER EXTREMITIES: 2+ pulses, warm, well-perfused. No calf tenderness. No peripheral edema. NEUROLOGICAL: Cranial nerves II-XII intact. Normal speech. Normal gait. PSYCHIATRIC: Cooperative. Good eye contact. Appropriate mood and affect. SKIN: Warm, dry, normal turgor, no rashes or lesions noted, normal capillary refill. Laboratory Results - last 24 hr 03/12/17 03/12/17 03/12/17 13:10 13:10 14:20 WBC 6.3 RBC 5.29 Hgb 15.3 Hct 46.9 MCV 88.7 MCH 29.0 MCHC 32.7 RDW 15.7 Plt Count 255 MPV 8.6 D Neutrophils % 50.3 Lymphocytes % 32.8 Monocytes % 12.2 H Eosinophils % 3.3 Basophils % 1.4 Sodium 142 Potassium 4.7 Chloride 107 Carbon Dioxide 28 Anion Gap 7 L BUN 13 D Creatinine 1.0 D Creat Clearance w eGFR > 60 Random Glucose 78 D Calcium 9.2 Magnesium 2.4 Total Bilirubin 0.9 D AST 18 D ALT 16 Alkaline Phosphatase 65 Troponin I 0.05 B-Natriuretic Peptide 887.16 H Total Protein 7.4 Albumin 3.7 Lipase 133 Opiates Screen Methadone Screen Barbiturate Screen Phencyclidine Screen Ur Amphetamines Screen MDMA (Ecstasy) Screen Benzodiazepines Screen Cocaine Screen U Marijuana (THC) Screen 03/12/17 14:25 WBC RBC Hgb Hct MCV MCH MCHC RDW Plt Count MPV Neutrophils % Lymphocytes % Monocytes % Eosinophils % Basophils % Sodium Potassium Chloride Carbon Dioxide Anion Gap BUN Creatinine Creat Clearance w eGFR Random Glucose Calcium Magnesium Total Bilirubin AST ALT Alkaline Phosphatase Troponin I B-Natriuretic Peptide Total Protein Albumin Lipase Opiates Screen Negative Methadone Screen Negative Barbiturate Screen Negative Phencyclidine Screen Negative Ur Amphetamines Screen Negative MDMA (Ecstasy) Screen Negative Benzodiazepines Screen Positive Cocaine Screen Negative U Marijuana (THC) Screen Positive ASSESSMENT/PLAN:
--- NOTE | 2017-03-12 18:13 | HP ---
Admitting History and Physical - Admission Chief Complaint: chest pain History of Present Illness: This is a 61 year old male with pmhx of EtOH abuse, substance abuse (cocaine, marijuana) neoplasm around the heart, hx of ME X 2 (7 stents placed in 2002), CHF, PTSD, schizoaffective disorder, depression, bipolar disorder, HLD, uncontrolled HTN, who presented to the ED from [facility] (where he was undergoing detox since 03/09) with chest pain. His chest pain was L sided, not stabbing, radiating to his shoulder with associated diaphoresis. In the past he has experienced a stabbing pain and each time he has associated lower extremity swelling and a migraine. Today, he did not have lower extremity swelling but he did have a migraine. Symptoms were not exacerbated by anything, he was reading a book, when the pain started he asked for a Tylenol right away. The whole episode lasted 10 -15 mins. He normally is active with stationary bike and walking around. He smoked 4 cigg/ day, used to smoke 4 packs. His last cocaine use was 5 days ago. 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 Pt is very focused on staying clean for the next 30 days so he can get into a PTSD program. He does not want the [place] to know he was detoxed or he will lose his place in line with his PTSD program. Currently, he would like to go to rehab and denies chest pain or any further symptoms. History Source: Patient Limitations to Obtaining History: No Limitations - Past Medical History Cardiovascular: Yes: CAD, HTN, Hyperlipdemia, [place] Psych: Yes: Addictions, Bipolar, Depression - Past Surgical History Past Surgical History: Yes: Stent - Smoking History Smoking history: Current every day smoker Have you smoked in the past 12 months: Yes Aproximately how many cigarettes per day: 4 - Alcohol/Substance Use Hx Alcohol Use: Yes History of Substance Use: reports: Cocaine, Marijuana - Social History Usual Living Arrangement: Yes: Alone ADL: Independent History of Recent Travel: No Home Medications - Allergies Allergies/Adverse Reactions: Allergies Allergy/AdvReac Type Severity Reaction Status Date / Time No Known Allergies Allergy Verified 03/12/17 12:23 - Home Medications Home Medications: Ambulatory Orders Aspirin [ASA -] 81 mg PO DAILY 03/09/17 Hydralazine HCl [Apresoline -] 50 mg PO Q8H 03/09/17 Lisinopril [Zestril] 40 mg PO DAILY 03/09/17 Multivitamins [Tab-A-Vit -] 1 tab PO DAILY 03/09/17 Pravastatin Sodium [Pravachol (Nf)] 40 mg PO HS 03/09/17 Prazosin HCl [Minipress -] 1 mg PO HS 03/09/17 Verapamil HCl [Calan Sr] 180 mg PO AM 03/09/17 Prazosin HCl 1 mg PO HS #30 capsule 03/10/17 Escitalopram Oxalate [Lexapro -] 5 mg PO TID 03/12/17 Family Disease History - Family Disease History Family Disease History: Diabetes: Mother (HTN), Heart Disease: Grandparent (ME; HTN.), Mother Review of Systems - Review of Systems Constitutional: reports: Diaphoresis Eyes: reports: No Symptoms HENT: reports: No Symptoms Neck: reports: No Symptoms Cardiovascular: reports: Chest Pain Respiratory: reports: No Symptoms Gastrointestinal: reports: No Symptoms Genitourinary: reports: No Symptoms Musculoskeletal: reports: No Symptoms Integumentary: reports: No Symptoms Neurological: reports: Headache Endocrine: reports: No Symptoms Hematology/Lymphatic: reports: No Symptoms Physical Examination Vital Signs: Vital Signs Temperature 97.8 F 03/12/17 12:15 Pulse Rate 61 03/12/17 16:15 Respiratory Rate 18 03/12/17 12:15 Blood Pressure 157/131 03/12/17 16:15 O2 Sat by Pulse Oximetry (%) 100 03/12/17 16:15 Constitutional: Yes: Calm Eyes: Yes: Conjunctiva Clear HENT: Yes: Atraumatic Neck: Yes: Supple Cardiovascular: Yes: Regular Rate and Rhythm, S1, S2 Respiratory: Yes: Regular, CTA Bilaterally Gastrointestinal: Yes: Normal Bowel Sounds, Soft Musculoskeletal: Yes: WNL Extremities: Yes: WNL Edema: No Integumentary: Yes: WNL Neurological: Yes: Alert, Oriented, Cran Nerves II-XII Intact Psychiatric: Yes: Alert, Oriented Imaging - Results EKG: Report Reviewed Problem List - Problems (1) Alcohol dependence Code(s): F10.20 - ALCOHOL DEPENDENCE, UNCOMPLICATED (2) Cannabis dependence, uncomplicated Code(s): F12.20 - CANNABIS DEPENDENCE, UNCOMPLICATED (3) Chest pain Code(s): R07.9 - CHEST PAIN, UNSPECIFIED Qualifiers: Chest pain type: unspecified Qualified Code(s): R07.9 - Chest pain, unspecified (4) Cocaine dependence Code(s): F14.20 - COCAINE DEPENDENCE, UNCOMPLICATED (5) Nicotine dependence Code(s): F17.200 - NICOTINE DEPENDENCE, UNSPECIFIED, UNCOMPLICATED Qualifiers : Nicotine product type: cigarettes Substance use status: in withdrawal Qualified Code(s): F17.213 - Nicotine dependence, cigarettes, with withdrawal (6) PTSD (post-traumatic stress disorder) Code(s): F43.10 - POST-TRAUMATIC STRESS DISORDER, UNSPECIFIED (7) Schizoaffective disorder Code(s): F25.9 - SCHIZOAFFECTIVE DISORDER, UNSPECIFIED (8) History of bipolar disorder Code(s): Z86.59 - PERSONAL HISTORY OF OTHER MENTAL AND BEHAVIORAL DISORDERS (9) History of depression Code(s): Z86.59 - PERSONAL HISTORY OF OTHER MENTAL AND BEHAVIORAL DISORDERS (10) Hypercholesterolemia Code(s): E78.00 - PURE HYPERCHOLESTEROLEMIA, UNSPECIFIED (11) Hypertension Code(s): I10 - ESSENTIAL (PRIMARY) HYPERTENSION Qualifiers: Hypertension type: essential hypertension Qualified Code(s): I10 - Essential (primary) hypertension (12) Neoplasm of heart Code(s): D49.89 - NEOPLASM OF UNSPECIFIED BEHAVIOR OF OTHER SPECIFIED SITES (13) Stented coronary artery Code(s): Z95.5 - PRESENCE OF CORONARY ANGIOPLASTY IMPLANT AND GRAFT (14) CAD (coronary artery disease) Code(s): I25.10 - ATHSCL HEART DISEASE OF [place] CORONARY ARTERY W/O ANG PCTRS (15) Heart attack Code(s): I21.3 - ST ELEVATION (STEMI) MYOCARDIAL INFARCTION OF [facility] SITE Assessment/Plan Assessment: 61 year old male with pmhx of EtOH abuse, substance abuse (cocaine, marijuana) neoplasm around the heart, hx of ME X 2 (7 stents placed in 2002), CHF, PTSD, schizoaffective disorder, depression, bipolar disorder, HLD, uncontrolled HTN, who presented to the ED from [facility] (where he was undergoing detox since 03/09) with chest pain. Plan: 1. Chest pain r/o ACS - Trend cardiac enzymes - ASA daily - EKG in AM - ECHO - NPO After midnight for possible stress per cardiology - Cardiology consulted 2. CAD s/p stents - Verapamil 180mg daily - Lisinopril 40mg day 3. HTN - Meds above, hydralazine 50mg q8 4. BPH - Prazosin 1mg hs 5. Psych - Continue lexaprol 6. Substance abuse/ETOH - Completed detox - If needs rehab, will need [facility] Visit type - Emergency Visit Emergency Visit: Yes ED Registration Date: 03/12/17 Care time: The patient presented to the Emergency Department on the above date and was hospitalized for further evaluation of their emergent condition. - New Patient This patient is new to me today: Yes Date on this admission: 03/12/17 - Critical Care Critical Care patient: No
[2017-03-12] MEDS ORDERED: hydrALAZINE HCL 50 MG TABLET (FP) PO SCH (18:30)
[2017-03-12] MEDS ORDERED: hydrALAZINE HCL 25 MG TABLET (FP) ONE (18:55)
[2017-03-12 19:21] LABS: URINE APPEARANCE CLEAR; URINE BILIRUBIN NEGATIVE (NEGATIVE); URINE BLOOD NEGATIVE (NEGATIVE); URINE COLOR STRAW; URINE GLUCOSE (UA) NEGATIVE (NEGATIVE); URINE KETONE NEGATIVE (NEGATIVE); URINE LEUK ESTERASE NEGATIVE (NEGATIVE); URINE NITRITE NEGATIVE (NEGATIVE); URINE PROTEIN NEGATIVE (NEGATIVE); URINE UROBILINOGEN NEGATIVE mg/dL (0.2-1.0)
[2017-03-12] MEDS ORDERED: PRAZOSIN HCL 1 MG CAPSULE PO SCH ×2 (22:00)
[2017-03-12] MEDS: ESCITALOPRAM OXALATE 10 MG TABLET (FP) PO SCH (22:18)
[2017-03-12] MEDS: HEPARIN NA (PORCINE) 5,000 UNITS/ML 1ML VIAL SQ SCH (22:18)
[2017-03-13] MEDS: ESCITALOPRAM OXALATE 10 MG TABLET (FP) PO SCH ×4 (06:30→14:38)
[2017-03-13] MEDS: hydrALAZINE HCL 50 MG TABLET (FP) PO SCH ×3 (06:30→14:38)
[2017-03-13] MEDS: HEPARIN NA (PORCINE) 5,000 UNITS/ML 1ML VIAL SQ SCH ×2 (06:54→14:38)
[2017-03-13] MEDS ORDERED: VERAPAMIL HCL 180 MG E.R. TABLET (FP) PO SCH (07:00)
[2017-03-13 07:25] LABS: BASOPHIL 0.2 % (0-2.0); EOSINOPHIL 5.4 % (0-4.5); MCH 29.2 pg (25.7-33.7); MCHC 33.1 g/dl (32.0-35.9); MEAN CELL VOLUME 88.3 fl (80-96); MEAN PLT VOLUME 9.1 fl (7.5-11.1); NEUTROPHILS 48.2 % (42.8-82.8); PLATELET COUNT 240 K/MM3 (134-434); RDW 15.9 % (11.9-15.9); WHITE BLOOD COUNT 6.3 K/mm3 (4.0-10.0)
[2017-03-13 08:09] LABS: ALBUMIN 3.4 g/dl (3.4-5.0); ALK PHOS 58 U/L (45-117); ANION GAP 9 (8-16); BILIRUBIN,TOTAL 0.6 mg/dL (0.2-1.0); CALCIUM 8.9 mg/dL (8.5-10.1); CHOLESTEROL 122 mg/dL (50-200); CO2 25 mmol/L (21-32); CPK 74 IU/L (39-308); CREATININE 1.2 mg/dL (0.7-1.3); GLUCOSE,RANDOM 85 mg/dL (74-106); MAGNESIUM 2.3 mg/dL (1.8-2.4); PHOSPHOROUS 3.6 mg/dL (2.5-4.9); SGOT/AST 14 U/L (15-37); SGPT/ALT 14 U/L (12-78); TOT PROT 6.3 g/dl (6.4-8.2); TROPONIN I 0.06 ng/ml (0.00-0.05)
[2017-03-13] MEDS ORDERED: LISINOPRIL 20 MG TABLET (FP) PO SCH (10:00)
[2017-03-13] MEDS ORDERED: ASPIRIN 81 MG CHEWABLE TABLETS PO SCH (10:00)
--- NOTE | 2017-03-13 10:42 | CON.CARD ---
Cardiology Consult (text) - Consultation Consultation Note: cc: cp hpi: 61 m hx htn, cad s/p mi/pci's (2002), chf (?details), hld, active cocaine/ etoh/MJ/tob use sent from detox for cp. Pt says he was at rest yesterday at his etoh detox center and began to feel central/left chest sharp pain. No associated sxs. Resolved in about 15 mins on own. He has had similar episodes intermittently past few months. No anginal sxs. No sob, palps, dizzy, loc, pnd , orthopnea, le edema. Feeling well this AM. pmh: per hpi psh: per hpi social: active cocaine/etoh/MJ/tob use fam: no premature cad, scd ros: per hpi; no nvd, cough, paz, vision changes, muscle pains, gib, hematuria, dysuria meds: Home Medications Medication Instructions Recorded Aspirin [ASA -] 81 mg PO DAILY 03/09/17 Hydralazine HCl [Apresoline -] 50 mg PO Q8H 03/09/17 Lisinopril [Zestril] 40 mg PO DAILY 03/09/17 Multivitamins [Tab-A-Vit -] 1 tab PO DAILY 03/09/17 Pravastatin Sodium [Pravachol (Nf)] 40 mg PO HS 03/09/17 Prazosin HCl [Minipress -] 1 mg PO HS 03/09/17 Verapamil HCl [Calan Sr] 180 mg PO AM 03/09/17 Prazosin HCl 1 mg PO HS #30 capsule 03/10/17 Escitalopram Oxalate [Lexapro -] 5 mg PO TID 03/12/17 pe: Vital Signs Period Temp Pulse Resp BP Sys/Interiano Pulse Ox Last 24 Hr 96.7 F-98.7 F 61-83 16-20 137-177/77-131 97-100 nad no jvd rrr s1s2 no mrg cta bl nl eff aaox3 no le e/c/c abd nt nd pos bs no jaundice diaphoresis pos dp pt no carotid bruits Laboratory Last Values WBC 6.3 K/mm3 (4.0-10.0) 03/13/17 05:35 RBC 4.88 M/mm3 (4.00-5.60) 03/13/17 05:35 Hgb 14.3 GM/dL (11.7-16.9) 03/13/17 05:35 Hct 43.1 % (35.4-49) 03/13/17 05:35 MCV 88.3 fl (80-96) 03/13/17 05:35 MCH 29.2 pg (25.7-33.7) 03/13/17 05:35 MCHC 33.1 g/dl (32.0-35.9) 03/13/17 05:35 RDW 15.9 % (11.9-15.9) 03/13/17 05:35 Plt Count 240 K/MM3 (134-434) 03/13/17 05:35 MPV 9.1 fl (7.5-11.1) 03/13/17 05:35 Neutrophils % 48.2 % (42.8-82.8) 03/13/17 05:35 Lymphocytes % 36.0 % (8-40) 03/13/17 05:35 Monocytes % 10.2 % (3.8-10.2) 03/13/17 05:35 Eosinophils % 5.4 % (0-4.5) H 03/13/17 05:35 Basophils % 0.2 % (0-2.0) 03/13/17 05:35 Sodium 143 mmol/L (136-145) 03/13/17 05:35 Potassium 4.4 mmol/L (3.5-5.1) 03/13/17 05:35 Chloride 109 mmol/L (98-107) H 03/13/17 05:35 Carbon Dioxide 25 mmol/L (21-32) 03/13/17 05:35 Anion Gap 9 (8-16) 03/13/17 05:35 BUN 19 mg/dL (7-18) H D 03/13/17 05:35 Creatinine 1.2 mg/dL (0.7-1.3) 03/13/17 05:35 Creat Clearance w eGFR > 60 (>60) 03/13/17 05:35 Random Glucose 85 mg/dL (74-106) 03/13/17 05:35 Hemoglobin A1c % 5.5 % (4.8-6.0) 03/13/17 05:35 Calcium 8.9 mg/dL (8.5-10.1) 03/13/17 05:35 Phosphorus 3.6 mg/dL (2.5-4.9) 03/13/17 05:35 Magnesium 2.3 mg/dL (1.8-2.4) 03/13/17 05:35 Total Bilirubin 0.6 mg/dL (0.2-1.0) D 03/13/17 05:35 AST 14 U/L (15-37) L D 03/13/17 05:35 ALT 14 U/L (12-78) 03/13/17 05:35 Alkaline Phosphatase 58 U/L (45-117) 03/13/17 05:35 Creatine Kinase 74 IU/L (39-308) 03/13/17 05:35 Troponin I 0.06 ng/ml (0.00-0.05) H 03/13/17 05:35 B-Natriuretic Peptide 887.16 pg/ml (5-125) H 03/12/17 14:20 Total Protein 6.3 g/dl (6.4-8.2) L 03/13/17 05:35 Albumin 3.4 g/dl (3.4-5.0) 03/13/17 05:35 Triglycerides 100 mg/dL (35-160) 03/13/17 05:35 Cholesterol 122 mg/dL (50-200) 03/13/17 05:35 Lipase 133 U/L (73-393) 03/12/17 13:10 Urine Color Straw 03/12/17 19:10 Urine Appearance Clear 03/12/17 19:10 Urine pH 7.0 (5.0-8.0) D 03/12/17 19:10 Ur Specific [place] 1.015 (1.005-1.025) 03/12/17 19:10 Urine Protein Negative (NEGATIVE) 03/12/17 19:10 Urine Glucose (UA) Negative (NEGATIVE) 03/12/17 19:10 Urine Ketones Negative (NEGATIVE) 03/12/17 19:10 Urine Blood Negative (NEGATIVE) 03/12/17 19:10 Urine Nitrite Negative (NEGATIVE) 03/12/17 19:10 Urine Bilirubin Negative (NEGATIVE) 03/12/17 19:10 Urine Urobilinogen Negative mg/dL (0.2-1.0) 03/12/17 19:10 Opiates Screen Negative ng/ml (LUWFIL=451) 03/12/17 14:25 Methadone Screen Negative ng/ml (MUJJON=501) 03/12/17 14:25 Barbiturate Screen Negative ng/ml (YMHTAP=896) 03/12/17 14:25 Phencyclidine Screen Negative ng/ml (CUTOFF=25) 03/12/17 14:25 Ur Amphetamines Screen Negative ng/ml (NRQYNU=526) 03/12/17 14:25 MDMA (Ecstasy) Screen Negative ng/ml (YOONCW=863) 03/12/17 14:25 Benzodiazepines Screen Positive ng/ml (NPUQNN=731) 03/12/17 14:25 Cocaine Screen Negative ng/ml (FLSNLI=815) 03/12/17 14:25 U Marijuana (THC) Screen Positive ng/ml (CUTOFF=50) 03/12/17 14:25 ecg 03/12/17: sr, pvcs, nl qtc, no ischemic changes cxr: clear lungs tele: sr, occ pvcs a/p: 61 m hx htn, cad s/p mi/pci's (2002), chf (?details), hld, active cocaine/ etoh/MJ/tob use sent from detox for cp. cp: -atypical symptom, resolved -ce's neg, no ischemic changes on ecg, no signs of acs -given his cad/mi hx will check nuclear stress test to r/o significant cad htn: -cont current meds hld: -cont home statin cad s/p remote mi, pci: -per pt, no details available, has not followed with cardiology in long time -plan as above -cont asa, statin, val -no bb due to active cocaine use, on calan instead chf: -per charts, pt unclear of his hx -no signs chf on exam -check echo to see lvef polysubstance abuse: -cessation discussed if stress test today has no high risk findings then pt ok for dc from cardiac pov and he should f/u with outpt production analyst
[2017-03-13] MEDS ORDERED: DIPYRIDAMOLE 50 MG/10 ML VIAL IVPB ONE (14:00)
[2017-03-13 15:04] VITALS: BP 138/96; PULSE 85; TEMP 98.3
--- NOTE | 2017-03-13 15:50 | DS ---
Physical Exam: SUBJECTIVE: Patient seen and examined. He feels well, denies subsequent cP. OBJECTIVE: Vital Signs Period Temp Pulse Resp BP Sys/Interiano Pulse Ox Last 24 Hr 96.7 F-98.7 F 61-85 16-20 137-177/77-131 97-100 PE Neuro: alert, awake, cn 2-12intact Pulm: CTAB CV: s1 s2 rrr nomrg Abd: s nt nd + bs ExT: warm no le edema Laboratory Results - last 24 hr 03/12/17 03/13/17 03/13/17 19:10 05:35 05:35 WBC 6.3 RBC 4.88 Hgb 14.3 Hct 43.1 MCV 88.3 MCH 29.2 MCHC 33.1 RDW 15.9 Plt Count 240 MPV 9.1 Neutrophils % 48.2 Lymphocytes % 36.0 Monocytes % 10.2 Eosinophils % 5.4 H Basophils % 0.2 Sodium 143 Potassium 4.4 Chloride 109 H Carbon Dioxide 25 Anion Gap 9 BUN 19 H D Creatinine 1.2 Creat Clearance w eGFR > 60 Random Glucose 85 Hemoglobin A1c % Calcium 8.9 Phosphorus 3.6 Magnesium 2.3 Total Bilirubin 0.6 D AST 14 L D ALT 14 Alkaline Phosphatase 58 Creatine Kinase 74 Troponin I 0.06 H Total Protein 6.3 L Albumin 3.4 Triglycerides 100 Cholesterol 122 Total LDL Cholesterol 84 HDL Cholesterol 34 L Urine Color Straw Urine Appearance Clear Urine pH 7.0 D Ur Specific [place] 1.015 Urine Protein Negative Urine Glucose (UA) Negative Urine Ketones Negative Urine Blood Negative Urine Nitrite Negative Urine Bilirubin Negative Urine Urobilinogen Negative 03/13/17 05:35 WBC RBC Hgb Hct MCV MCH MCHC RDW Plt Count MPV Neutrophils % Lymphocytes % Monocytes % Eosinophils % Basophils % Sodium Potassium Chloride Carbon Dioxide Anion Gap BUN Creatinine Creat Clearance w eGFR Random Glucose Hemoglobin A1c % 5.5 Calcium Phosphorus Magnesium Total Bilirubin AST ALT Alkaline Phosphatase Creatine Kinase Troponin I Total Protein Albumin Triglycerides Cholesterol Total LDL Cholesterol HDL Cholesterol Urine Color Urine Appearance Urine pH Ur Specific [place] Urine Protein Urine Glucose (UA) Urine Ketones Urine Blood Urine Nitrite Urine Bilirubin Urine Urobilinogen HOSPITAL COURSE: Date of Admission:03/12/17 Date of Discharge: 03/13/17 Minutes to complete discharge: 37 Discharge Summary Reason For Visit: CHEST PAIN Current Active Problems CAD (coronary artery disease) (Acute) Chest pain (Acute) Heart attack (Acute) Stented coronary artery (Acute) Hospital Course: Initial Hospital Corpse: Briefly, this 61 year old male with pmhx of EtOH abuse, substance abuse (cocaine , marijuana) neoplasm around the heart, hx of OR X 2 (7 stents placed in 2002), CHF, PTSD, schizoaffective disorder, depression, bipolar disorder, HLD, uncontrolled HTN, presented to the ED from [facility] (where he was undergoing detox since 03/09) with chest pain. His chest pain was L sided, not stabbing, radiating to his shoulder with associated diaphoresis. In the past he has experienced a stabbing pain and each time he has associated lower extremity swelling and a migraine. This episode he did not have lower extremity swelling but did have a migraine. Symptoms were not exacerbated by anything, he was reading a book, when the pain started he asked for a Tylenol right away. The whole episode lasted 10 -15 mins. He normally is active with stationary bike and walking around. He smoked 4 cigg/ day, used to smoke 4 packs. His last cocaine use was 5 days ago. Hospital Course: Cardiac enzymes negative, acs ruled out ECHO shows preserved biventricular fcn and no severe valve dz. MIBI w/ inferolateral scar, mild-mod inferoapical/apical ischemia, nl lvef Due to no high risk ischemia, medical mgmt at this time Advised pt to cease substance abuse and follow up with MA rn patient care, he agrees to plan Pt can return to [facility] rehab thursday for rehab placement, there are no beds avail today Condition: Stable - Instructions Diet, Activity, Other Instructions: Please return to the ED for any new, persistent, or worsening symptoms. Follow up with your MA rn patient care and PCP in 1 week Abstain from drug use and alcohol going forward Return to [facility] on Thursday for rehab Disposition: HOME - Home Medications Comprehensive Discharge Medication List: Ambulatory Orders Aspirin [ASA -] 81 mg PO DAILY 03/09/17 Hydralazine HCl [Apresoline -] 50 mg PO Q8H 03/09/17 Lisinopril [Zestril] 40 mg PO DAILY 03/09/17 Multivitamins [Multivit ([facility] Formulary)] 1 tab PO DAILY 03/09/17 Pravastatin Sodium [Pravachol -] 40 mg PO HS 03/09/17 Prazosin HCl [Minipress -] 1 mg PO HS 03/09/17 Verapamil HCl [Calan Sr] 180 mg PO AM 03/09/17 Prazosin HCl 1 mg PO HS #30 capsule 03/10/17 Escitalopram Oxalate [Lexapro -] 5 mg PO TID 03/12/17 Problem List - Problems (1) Alcohol dependence Code(s): F10.20 - ALCOHOL DEPENDENCE, UNCOMPLICATED (2) Cannabis dependence, uncomplicated Code(s): F12.20 - CANNABIS DEPENDENCE, UNCOMPLICATED (3) Chest pain Code(s): R07.9 - CHEST PAIN, UNSPECIFIED Qualifiers: Chest pain type: unspecified Qualified Code(s): R07.9 - Chest pain, unspecified (4) Cocaine dependence Code(s): F14.20 - COCAINE DEPENDENCE, UNCOMPLICATED (5) Nicotine dependence Code(s): F17.200 - NICOTINE DEPENDENCE, UNSPECIFIED, UNCOMPLICATED Qualifiers : Nicotine product type: cigarettes Substance use status: in withdrawal Qualified Code(s): F17.213 - Nicotine dependence, cigarettes, with withdrawal (6) PTSD (post-traumatic stress disorder) Code(s): F43.10 - POST-TRAUMATIC STRESS DISORDER, UNSPECIFIED (7) Schizoaffective disorder Code(s): F25.9 - SCHIZOAFFECTIVE DISORDER, UNSPECIFIED (8) History of bipolar disorder Code(s): Z86.59 - PERSONAL HISTORY OF OTHER MENTAL AND BEHAVIORAL DISORDERS (9) History of depression Code(s): Z86.59 - PERSONAL HISTORY OF OTHER MENTAL AND BEHAVIORAL DISORDERS (10) Hypercholesterolemia Code(s): E78.00 - PURE HYPERCHOLESTEROLEMIA, UNSPECIFIED (11) Hypertension Code(s): I10 - ESSENTIAL (PRIMARY) HYPERTENSION Qualifiers: Hypertension type: essential hypertension Qualified Code(s): I10 - Essential (primary) hypertension (12) Neoplasm of heart Code(s): D49.89 - NEOPLASM OF UNSPECIFIED BEHAVIOR OF OTHER SPECIFIED SITES (13) Stented coronary artery Code(s): Z95.5 - PRESENCE OF CORONARY ANGIOPLASTY IMPLANT AND GRAFT (14) CAD (coronary artery disease) Code(s): I25.10 - ATHSCL HEART DISEASE OF [place] CORONARY ARTERY W/O ANG PCTRS (15) Heart attack Code(s): I21.3 - ST ELEVATION (STEMI) MYOCARDIAL INFARCTION OF [facility] SITE This patient is new to me today: No Emergency Visit: Yes ED Registration Date: 03/12/17 Care time: The patient presented to the Emergency Department on the above date and was hospitalized for further evaluation of their emergent condition. Critical Care patient: No - Discharge Referral Referred to [facility] Med P.C.: No
== END 2017-03-13 17:45 | disposition home or self-care (01) ==
LOC: JER 12:07 → JERBED 15:19 → J4W 21:02
PROVIDERS: ADMIT Internal Medicine; ATTEND Nurse Practitioner Acute Care
PROC: 3E033GC Introduction of Other Therapeutic Substance into Peripheral Vein, Percutaneous Approach (ICD-10-PCS; principal; 2017-03-12)
PROC: 3E013GC Introduction of Other Therapeutic Substance into Subcutaneous Tissue, Percutaneous Approach (ICD-10-PCS; 2017-03-12)
DX: R07.9 Chest pain, unspecified (principal); F12.20 Cannabis dependence, uncomplicated; F14.20 Cocaine dependence, uncomplicated; F10.20 Alcohol dependence, uncomplicated; I25.10 Atherosclerotic heart disease of native coronary artery without angina pectoris; I10 Essential (primary) hypertension; I25.2 Old myocardial infarction; I50.9 Heart failure, unspecified; E78.5 Hyperlipidemia, unspecified; F17.210 Nicotine dependence, cigarettes, uncomplicated; F43.10 Post-traumatic stress disorder, unspecified; F25.9 Schizoaffective disorder, unspecified; F32.9 Major depressive disorder, single episode, unspecified; F31.9 Bipolar disorder, unspecified; Z95.5 Presence of coronary angioplasty implant and graft; K21.9 Gastro-esophageal reflux disease without esophagitis; D48.7 Neoplasm of uncertain behavior of other specified sites; Z86.69 Personal history of other diseases of the nervous system and sense organs; Z86.73 Personal history of transient ischemic attack (TIA), and cerebral infarction without residual deficits; Z79.82 Long term (current) use of aspirin
CPT/HCPCS: 36415; 71010-TC; 78452-TC; 80053; 80061; 80307; 81003; 83036; 83690; 83721; 83735; 83880; 84100; 84484; 85025; 93005; 93010; 93017; 93306-TC; 99285-25; A9502; G0378; J1644